=== PATIENT | female | born 1985 | race Caucasian/White ===

== ENCOUNTER 2019-03-25 05:08 | Day surgery (SDC) | payer BC, OTHER ==
[2019-03-23 14:39] VITALS: BMI 24.7
[~2019-03-25 05:08] MED LIST: BUPIVACAINE HCL/PF 0.5% (5MG/ML) 10 ML VIAL IJ ONE
[2019-03-25] MEDS ORDERED: BUPIVACAINE HCL/PF 0.5% (5 MG/ML) 30 ML VIAL IJ ONE (13:52)
[2019-03-25] MEDS ORDERED: MIDAZOLAM HCL 2 MG/2 ML SINGLE DOSE VIAL ONE (14:18)
[2019-03-25] MEDS ORDERED: PROPOFOL 20 ML ONE ×2 (14:19)
[2019-03-25] MEDS ORDERED: ROCURONIUM BROMIDE 50 MG/5 ML SYRINGE ONE (14:24)
--- NOTE | 2019-03-25 14:37 | HP ---
Admitting History and Physical - Admission Chief Complaint: Elective sterilization History of Present Illness: 33 yo Para 3, LMP 03/13/19, is pre op for laparoscopic bilateral tubal ligation. History Source: Patient Limitations to Obtaining History: No Limitations - Past Medical History ...LMP: 03/14/19 ...LMP Comment: HEAVY ...: No ...Para: 3 - Past Surgical History Additional Past Surgical History: Breast augmentation - Smoking History Smoking history: Never smoked Have you smoked in the past 12 months: No - Alcohol/Substance Use Hx Alcohol Use: Yes (SOCIAL) - Social History Usual Living Arrangement: Yes: With Significant Other History of Recent Travel: No Home Medications - Allergies Allergies/Adverse Reactions: Allergies Allergy/AdvReac Type Severity Reaction Status Date / Time No Known Allergies Allergy Verified 03/23/19 14:39 - Home Medications Home Medications: Ambulatory Orders Ventolin HFA Inhaler - 2 inhaler IH PRN PRN 03/23/19 Family Medical History Family History: Unremarkable Review of Systems - Review of Systems Constitutional: reports: No Symptoms Eyes: reports: No Symptoms Neck: reports: No Symptoms Cardiovascular: reports: No Symptoms Respiratory: reports: No Symptoms Gastrointestinal: reports: No Symptoms Genitourinary: reports: No Symptoms Breasts: reports: No Symptoms Reported Musculoskeletal: reports: No Symptoms Integumentary: reports: No Symptoms Neurological: reports: No Symptoms Endocrine: reports: No Symptoms Hematology/Lymphatic: reports: No Symptoms Psychiatric: reports: No Symptoms Pain Intensity: 0 Physical Examination Vital Signs: Vital Signs Temperature 98.6 F 03/25/19 12:49 Pulse Rate 61 03/25/19 12:49 Respiratory Rate 18 03/25/19 12:49 Blood Pressure 112/77 03/25/19 12:49 O2 Sat by Pulse Oximetry (%) 96 03/25/19 12:49 Constitutional: Yes: Well Nourished Eyes: Yes: Conjunctiva Clear HENT: Yes: Atraumatic Neck: Yes: Supple Cardiovascular: Yes: Regular Rate and Rhythm Respiratory: Yes: Regular Gastrointestinal: Yes: Normal Bowel Sounds ...Rectal Exam: Yes: WNL Breast(s): Yes: WNL Musculoskeletal: Yes: WNL Extremities: Yes: WNL Integumentary: Yes: WNL Neurological: Yes: Alert, Oriented ...Motor Strength: WNL Psychiatric: Yes: Alert, Oriented Problem List - Problems (1) Multiparity Problems reviewed: Yes Code(s): Z64.1 - PROBLEMS RELATED TO MULTIPARITY Assessment/Plan Multiparity Pre op for Laparoscopic bilateral tubal ligation Consent signed Anesthesia to see patient
[2019-03-25] MEDS ORDERED: DEXAMETHASONE SOD PHOSPHATE 4 MG/1 ML VIAL ONE (14:46)
[2019-03-25] MEDS ORDERED: LIDOCAINE HCL/PF 2% SDV 5ML VIAL ONE (14:46)
[2019-03-25] MEDS ORDERED: KETOROLAC TROMETHAMINE 30 MG/1 ML VIAL ONE (14:57)
[2019-03-25] MEDS ORDERED: NEOSTIGMINE METHYLSULFATE 0.5 MG/ML - 10 ML MDV ONE (15:28)
[2019-03-25] MEDS ORDERED: GLYCOPYRROLATE 0.2 MG/1 ML VIAL ONE (15:28)
--- NOTE | 2019-03-25 15:51 | OP ---
Operative Note - Note: Operative Date: 03/25/19 Pre-Operative Diagnosis: Multiparity / Desires permanent sterilization Operation: Laparoscopic bilateral tubal ligation Findings: Bicornutate uterus Post-Operative Diagnosis: Same as Pre-op Surgeon: Gillian Eduardo Anesthesia: General Specimens Removed: None Estimated Blood Loss (mls): 5
[2019-03-25] MEDS ORDERED: BUPIVACAINE HCL/PF 0.5% (5MG/ML) 10 ML VIAL IJ ONE (15:58)
[2019-03-25] MEDS ORDERED: ONDANSETRON 4 MG/2 ML VIAL ONE ×2 (16:08→16:10)
[2019-03-25] MEDS ORDERED: ONDANSETRON 4 MG/2 ML VIAL IVPUSH PRN (16:32)
[2019-03-25] MEDS ORDERED: ACETAMINOPHEN 1000 MG/100 ML VIAL (NON FORMULARY) IVPB ONE (16:33)
[2019-03-25] MEDS ORDERED: LACTATED RINGERS SOLUTION 1,000 ML IV SCH (16:45)
[2019-03-25 16:57] VITALS: TEMP 97.8
[2019-03-25 17:42] VITALS: BP 119/70; PULSE 60
--- NOTE | 2019-04-01 07:43 | OP ---
DATE OF OPERATION: 03/25/2019 PREOPERATIVE DIAGNOSIS: Multiparity, desires permanent sterilization. POSTOPERATIVE DIAGNOSIS: Multiparity, desires permanent sterilization. PROCEDURE PERFORMED: Laparoscopic bilateral tubal ligation. SURGEON: Gillian Eduardo M.D. ANESTHESIA: General. COMPLICATIONS: None. ESTIMATED BLOOD LOSS: Less than 5 mL. DESCRIPTION OF PROCEDURE: The patient was taken to the operating room, where general anesthesia was obtained without difficulty. The patient was then examined under anesthesia and was found to have a small uterus, with normal adnexa. She was then placed in the dorsal lithotomy position, prepped and draped in the proper sterile fashion. A weighted speculum was placed in the vagina. The anterior lip of the cervix was grasped with a single-toothed tenaculum. A HUMI uterine manipulator was then visualized into the uterus to provide the means to manipulate the uterus. Then the speculum was removed from the vagina. A [place] catheter was inserted. Attention was then turned to the abdomen, where a 5-mm skin incision was made in the umbilical fold. A Veress needle was carefully introduced into the peritoneal cavity while tenting the abdominal wall. Intraperitoneal placement was confirmed by use of a water-filled syringe and drop in intra-abdominal pressure with insufflation of CO2 gas. The trocar and sleeve were then advanced without difficulty into the abdomen, where intra-abdominal placement was confirmed by the laparoscope. Pneumoperitoneum was obtained with 3 L of CO2 gas. A 5-mm trocar and sleeve were then advanced without difficulty into the abdomen, where intra-abdominal placement was confirmed by the laparoscope. A second skin incision was made 2 cm above the symphysis pubis in the midline. A second trocar and sleeve were then advanced under direct visualization. A survey of the patient's pelvis and abdomen revealed a bicornuate uterus, with normal tubes. Using the Kleppinger, the right tube was then grabbed and cauterized in 3 contiguous areas. This segment of the tube was cauterized until complete blanching of the tube was visualized. The same procedure was performed on the left side. The instruments were removed from the patient's abdomen. The incision was repaired using 3-0 Vicryl, and Dermabond was applied over the incision. The HUMI was then removed from the vagina, with no bleeding noted from the cervix. The patient tolerated the procedure well. Sponge, lap and needle counts were correct x2. The patient was then taken to the recovery room in stable condition. GILLIAN EDUARDO M.D. [id number] MTDD
== END 2019-03-25 18:05 | disposition home or self-care (01) ==
LOC: JASU-SURG 05:08
PROVIDERS: ATTEND Obstetrics & Gynecology
PROC: 0U574ZZ Destruction of Bilateral Fallopian Tubes, Percutaneous Endoscopic Approach (ICD-10-PCS; principal; 2019-03-25 14:30)
DX: Z30.2 Encounter for sterilization (principal); Z64.1 Problems related to multiparity
CPT/HCPCS: 94760; J0131

== ENCOUNTER 2022-06-23 20:49 | Emergency (ER) | payer BC, OTHER ==
[2022-06-23 21:07] VITALS: BP 148/91; PULSE 70; RESP 19; TEMP 97.1; BMI 24.9
== END 2022-06-23 21:40 | disposition left against medical advice (07) ==
LOC: JER 20:49
DX: R11.2 Nausea with vomiting, unspecified (principal); R51.9 Headache, unspecified
CPT/HCPCS: 99281-25